=== PATIENT | female | born 1990 ===

== ENCOUNTER 2018-07-25 19:03 | Inpatient (IN) | payer OTHER ==
[~2018-07-25] VITALS: Ht 157.5 cm; Wt 76.4 kg
[2018-07-31 19:44] VITALS: BP 114/79; PULSE 105; TEMP 98.2
[2018-07-31] MEDS ORDERED: PRENATAL FORMU1 EAC3 PO (19:49)
[2018-07-31] MEDS ORDERED: GLUCOPHAGE500 MG/TAB PO (19:50)
[2018-07-31] MEDS ORDERED: PEPCID 20MG TAB20 MG PO (19:51)
[2018-07-31] MEDS ORDERED: ZOVIRAX400 MG PO (19:52)
[2018-07-31] MEDS ORDERED: CALCIUM WITH D31 CTB (19:53)
[2018-07-31] MEDS ORDERED: ZYRTEC5 MG PO (19:54)
[2018-07-31 20:29] LABS: BASO % 0.2 % (0.0-2.0); EOS # 0.1 (0.0-0.7); GRAN # 6.7 (1.4-6.5); GRAN % 76.8 % (42.2-75.2); LYMPH # 1.2 (1.2-3.4); LYMPH % 13.8 % (20.0-51.0); MEAN CELL VOLUME 85 fl (80.0-100.0); MEAN CORPUSCULAR HEMOGLOBIN 29 pg (27.0-31.0); MEAN CORPUSCULAR HGB CONC 34 g/dl (33.0-37.0); MEAN PLATELET VOLUME 11.6 fl (7.4-10.4); MONO # 0.7 (0.1-0.6); PLATELET COUNT 161 K/mm3 (130-400); RED BLOOD COUNT 4.11 M/mm3 (4.10-5.30); REDCELL DISTRIBUTION WIDTH-CV 13.7 % (11.5-14.5)
[2018-07-31 20:30] VITALS: BP 124/75; PULSE 85
[2018-07-31 21:00] VITALS: BP 124/75; PULSE 85
[2018-07-31 21:30] VITALS: BP 121/84; PULSE 96
[2018-08-01] VITALS (42 sets, daily range): BP systolic 116–140; BP diastolic 59–93; PULSE 75–123; TEMP 97.5–98.3
[2018-08-02 01:35] VITALS: BP 111/62; PULSE 79
[2018-08-02 07:09] VITALS: BP 103/77; PULSE 91; TEMP 98.2
[2018-08-02 11:15] VITALS: BP 102/73; PULSE 92; TEMP 98.4
[2018-08-02 15:36] VITALS: BP 116/76; PULSE 79; TEMP 97.3
[2018-08-02 20:10] VITALS: BP 114/80; PULSE 82; TEMP 98.1
[2018-08-03 07:45] VITALS: BP 105/71; PULSE 77; TEMP 98.2
[2018-08-03] MEDS ORDERED: IBU800 M1 PO (08:55)
== END 2018-08-03 14:20 | disposition home or self-care (01) | DRG 807 ==
LOC: LDR 07-31 18:58 → OB 07-31 19:08
PROVIDERS: Student in an Organized Health Care Education/Training Program
PROC: 3E0P7VZ Introduction of Hormone into Female Reproductive, Via Natural or Artificial Opening (ICD-10-PCS; 2018-07-31)
PROC: 10E0XZZ Delivery of Products of Conception, External Approach (ICD-10-PCS; principal; 2018-08-01)
PROC: 0KQM0ZZ Repair Perineum Muscle, Open Approach (ICD-10-PCS; 2018-08-01)
PROC: 10907ZC Drainage of Amniotic Fluid, Therapeutic from Products of Conception, Via Natural or Artificial Opening (ICD-10-PCS; 2018-08-01)
PROC: 3E033VJ Introduction of Other Hormone into Peripheral Vein, Percutaneous Approach (ICD-10-PCS; 2018-08-01)
DX: O76 Abnormality in fetal heart rate and rhythm complicating labor and delivery (principal); Z37.0 Single live birth; O70.1 Second degree perineal laceration during delivery; Z3A.39 39 weeks gestation of pregnancy; O26.893 Other specified pregnancy related conditions, third trimester; Z67.11 Type A blood, Rh negative; E28.2 Polycystic ovarian syndrome
CPT/HCPCS: J2590; J2795; J7120

== ENCOUNTER 2019-07-10 14:43 | Inpatient (IN) | payer OTHER ==
[~2019-07-10] VITALS: Ht 160 cm; Wt 79.5 kg
[~2019-07-10 14:43] MED LIST: CALCIUM WITH D31 CTB; GLUCOPHAGE500 MG/TAB PO; IBU800 M1 PO; PEPCID 20MG TAB20 MG PO; PRENATAL FORMU1 EAC3 PO; ZOVIRAX400 MG PO; ZYRTEC5 MG PO
[2019-07-16] VITALS (43 sets, daily range): BP systolic 106–153; BP diastolic 54–92; PULSE 64–139; TEMP 97.6–98
--- NOTE | 2019-07-16 06:40 | NUR ---
Patient ambulatory to LR5 with spouse, changed into gown, FHR/TOCO monitors placed and explained. Patient states she has been having some contractions but nothing too regular, denies leaking of fluid/vaginal bleeing. Plan of care discussed and patient verbalizes understanding. 0700: IV started in left hand, blood obtained, LR infusing. Assessment completed and consent/ packet gone over/given. 0717: Dr. Campbell calls and orders to SVE and then place cytotec vaginally if needed. 0720: SVE-2/80/-2 with bulgy bag felt 0722: Dr. Campbell called and notified and ordered not to place cytotec and start pitocin. Patient updated on plan of care.
[2019-07-16] MEDS ORDERED: ZYRTEC 10MG10 MG PO (07:05)
[2019-07-16] MEDS ORDERED: PEPCID 20MG TAB20 MG PO (07:05)
[2019-07-16] MEDS ORDERED: ZOVIRAX400 MG PO (07:05)
[2019-07-16 07:56] LABS: BASO % 0.3 % (0.0-2.0); EOS # 0.1 (0.0-0.7); EOS % 1.6 % (0-4.0); GRAN # 5.6 (1.4-6.5); GRAN % 73.2 % (42.2-75.2); HEMOGLOBIN 12.4 g/dl (12.5-16.0); LYMPH # 1.2 (1.2-3.4); LYMPH % 15.7 % (20.0-51.0); MEAN CELL VOLUME 89 fl (80.0-100.0); MEAN CORPUSCULAR HEMOGLOBIN 30 pg (27.0-31.0); MEAN CORPUSCULAR HGB CONC 34 g/dl (33.0-37.0); MEAN PLATELET VOLUME 12.3 fl (7.4-10.4); MONO # 0.7 (0.1-0.6); MONO % 8.7 % (1.7-9.3); PLATELET COUNT 131 K/mm3 (130-400); RED BLOOD COUNT 4.09 M/mm3 (4.10-5.30); REDCELL DISTRIBUTION WIDTH-CV 13.8 % (11.5-14.5)
[2019-07-16 08:02] LABS: HEMATOCRIT 36.3 % (37.0-47.0)
--- NOTE | 2019-07-16 11:10 | NUR ---
Dr. Campbell at bedside to assess patient and FHR strip. 1115: SVE:4/90/-2 with clear fluid noted per physician. No new orders at this time. 1145: Patient requesting epidural and Guy ZEPEDA called and notified. 1200: Patient sitting on ball and leaning forward and FHR tracing maternal heart rate intermittently. 1205: Patient sitting on edge of bed and Elvin Weber CRNA at bedside for placement of epidural. Difficulty tracing FHR due to maternal position. 1214: Single shot given and patient tolerates well. 1220: Patient repositioned and plan of care/precautions discussed.
--- NOTE | 2019-07-16 12:45 | NUR ---
Tineo catheter placed and patient tolerates well. SVE-10/0 1300: Dr. Campbell called and updated. Ordered to start pushing with patient. 1305: Patient given pushing instructions/plan of care. Patient begins pushing. FHR baseline 120 and intermittently decreases to 115 with pushing. Recurrent variable decelerations noted. 1330: head feel to be in LOP position. Patient turned left lateral with right leg resting in stirrup. 1340: Patient turned right lateral and left leg resting in stirrup. Patient resting. 1400: Patient begins to push with each contraction. 1440: Patiet pushing on right side. 1450: Patient pushes on left side. 1510: Patient turned to knees/chest position and pushing with contractions. 1540: Dr. Campbell called and updated and states she will come after she sees one more patient. Recurrent variable decelerations noted with pushing. 1555: Dr. Campbell at bedside and assesses patient and FHR strip at this time. Orders to increase pitocin. Pitocin at 18mU. 1610: Tineo catheter removed and patient tolerates well. Bed taken apart and patient set up for vaginal delivery. 1616: Spontaneous vaginal delivery of head followed by body. bulb syrined and onto patients abdomen. Jesus Manuel Elaine RN assumes care of . Cord clamped by physician and cut by FOB. Cord blood obtained,. 1621: Spontaneous vaginal delivery of placenta and pitocin bolus started per protocol. Dr. Campbell begins to repair laceration at this time. 1640: Patient repositioned and ice pack to perineum. Plan of care discussed.
--- NOTE | 2019-07-17 06:15 | NUR ---
REPORT RECEIVED FROM OFF GOING RN, MERARI Cleary CARE TAKEN OVER BY THIS RN.
[2019-07-17 06:40] VITALS: BP 119/79; PULSE 80; TEMP 97.5
--- NOTE | 2019-07-17 11:39 | NUR ---
Initial visit; Parents thanked [employer] for looking in on them and offering congratulations and God's blessing for the of their second son.
[2019-07-17 12:00] VITALS: BP 116/72; PULSE 96; TEMP 98.1
[2019-07-17] MEDS ORDERED: IBU800 M1 PO (12:44)
[2019-07-17 17:06] VITALS: BP 120/74; PULSE 83; TEMP 97.8
[2019-07-17 19:13] VITALS: BP 133/97; PULSE 88; TEMP 98.2
[2019-07-18 07:15] VITALS: BP 112/75; PULSE 76; TEMP 98.3
== END 2019-07-18 11:00 | disposition home or self-care (01) | DRG 806 ==
LOC: LDR 14:43 → OB 07-16 06:30 → LDR 07-16 07:29 → OB 07-16 21:53
PROVIDERS: ADMIT Student in an Organized Health Care Education/Training Program
PROC: 10E0XZZ Delivery of Products of Conception, External Approach (ICD-10-PCS; principal; 2019-07-16)
PROC: 0KQM0ZZ Repair Perineum Muscle, Open Approach (ICD-10-PCS; 2019-07-16)
PROC: 3E033VJ Introduction of Other Hormone into Peripheral Vein, Percutaneous Approach (ICD-10-PCS; 2019-07-16)
DX: O48.0 Post-term pregnancy (principal); O98.52 Other viral diseases complicating childbirth; Z37.0 Single live birth; B00.89 Other herpesviral infection; O99.12 Other diseases of the blood and blood-forming organs and certain disorders involving the immune mechanism complicating childbirth; Z3A.40 40 weeks gestation of pregnancy; O26.893 Other specified pregnancy related conditions, third trimester; Z67.91 Unspecified blood type, Rh negative; O99.284 Endocrine, nutritional and metabolic diseases complicating childbirth; E28.2 Polycystic ovarian syndrome; O70.1 Second degree perineal laceration during delivery
CPT/HCPCS: J2590; J2795; J7120